=== PATIENT | female | born 1955 | race Caucasian/White ===

== ENCOUNTER 2023-06-10 08:31 | Day surgery (SDC) | payer MEDICARE, OTHER ==
[~2023-06-10 08:31] MED LIST: Lactated Ringers 1,000 ML IV SCH; Sodium Chloride 0.9% 10 ML Syringe FLUSH PRN
[2023-06-10] MEDS ORDERED: Propofol 200 MG/20 ML SDV IV ONE (08:32)
[2023-06-10] MEDS ORDERED: Lidocaine 2% 5 ML SDV IV ONE (08:32)
[2023-06-10] MEDS ORDERED: Simethicone Drops 40 MG/0.6 ML 30 ML Bottle ONE (10:58)
== END 2023-06-10 12:29 | disposition home or self-care (01) ==
LOC: FB.SDS 08:31
PROVIDERS: ATTEND Surgery
DX: Z12.11 Encounter for screening for malignant neoplasm of colon (principal); D12.0 Benign neoplasm of cecum; E78.5 Hyperlipidemia, unspecified; E07.9 Disorder of thyroid, unspecified; I10 Essential (primary) hypertension; Z90.89 Acquired absence of other organs; Z80.0 Family history of malignant neoplasm of digestive organs; Z79.899 Other long term (current) drug therapy; Z79.82 Long term (current) use of aspirin; Z79.890 Hormone replacement therapy
CPT/HCPCS: 00811; 45380; 88305; A9270; J2704; J7120